=== PATIENT | male | born 1970 ===

== ENCOUNTER → 2023-03-13 | Outpatient (CLI) | payer OTHER ==
[2023-03-13 20:50] LABS: ALT 19 U/L (10-49); AST 12 U/L (14-35); Albumin 4.2 d/dL (3.8-4.9); Alkaline Phosphatase 96 U/L (41-126); Blood Urea Nitrogen 13.4 mg/dL (9.0-27.0); Calcium 9.4 mg/dL (8.7-10.3); Chloride 104 mmol/L (96-109); Globulin 2.8 d/dL (1.6-3.3); Glucose 103 mg/dL (70-110); Sodium 143 mmol/L (135-145); Total Bilirubin 0.4 mg/dL (0.3-1.2)
[2023-03-13 22:51] LABS: Prealbumin 23.8 mg/dL (18.0-42.0)
[2023-03-13 23:28] LABS: Basophils # (A) 0.08 X 10*3/uL (0.00-0.10); Basophils % (A) 0.8 %; Eosinophils # (A) 0.17 X 10*3/uL (0.04-0.35); Eosinophils % (A) 1.6 %; HCT 45.1 % (39.6-50.0); HGB 14.7 d/dL (12.0-15.0); Lymphocytes # (A) 2.47 X 10*3/uL (0.90-5.00); Lymphocytes % (A) 23.8 %; MCH 27.1 pg (27.0-32.0); MCHC 32.6 d/dL (32.0-37.0); MCV 83.2 FL (80.0-97.0); Mean Platelet Volume 9.9 FL (9.5-12.2); Monocytes # (A) 0.66 X 10*3/uL (0.20-1.00); Monocytes % (A) 6.4 %; NRBC Per 100 WBC 0 X 10*3/uL (0.00-0.01); Neutrophils # (A) 6.95 X 10*3/uL (1.80-7.70); Neutrophils % (A) 66.9 %; Platelet Count 270 X 10*3/uL (140-440); RBC 5.42 X 10*6/uL (4.40-5.60); RDW 14.5 % (11.5-14.5); WBC 10.38 X 10*3/uL (4.50-10.00)
== END | disposition home or self-care (01) ==
LOC: LABWHC1 13:38
PROVIDERS: ATTEND Nurse Practitioner Family
DX: L97.522 Non-pressure chronic ulcer of other part of left foot with fat layer exposed (principal); L97.512 Non-pressure chronic ulcer of other part of right foot with fat layer exposed; E11.621 Type 2 diabetes mellitus with foot ulcer; E11.42 Type 2 diabetes mellitus with diabetic polyneuropathy
CPT/HCPCS: 36415; 80053; 83036; 84134; 85025